=== PATIENT | male | born 1930 | race African-American/Black ===

== ENCOUNTER 2016-10-29 08:40 | Inpatient (IN) | payer BC, OTHER ==
--- NOTE | ~2016-10-29 | DS ---
Discharge Summary [facility] [address] [facility] [place]. [address] NAME: BLANE JIN : 30 STATUS : DIS IN PAT#: [id number] AGE: 86 ADM/REG DATE : 10/29/16 MR#: [id number] REPORT SERV DATE: 11/05/16 DICTATED BY: KIA JARRETT DATE: 11/04/16 REPORT STATUS : Draft TRANSCRIBED BY: MODL DATE: 11/04/16 ADMISSION DATE: 10/29/2016 DISCHARGE DATE: 11/04/2016 CONSULTANTS: 1. Armando Piper M.D., Cardiology. 2. Harini Canchola M.D., Orthopedic Surgery. DISCHARGE DIAGNOSES: 1. Acute systolic congestive heart failure, left ventricular ejection fraction 30%. 2. Acute kidney injury, superimposed on stage 3 chronic kidney disease. 3. Acute exacerbation of chronic obstructive pulmonary disease. 4. Acute on chronic hypercapnic hypoxic respiratory failure. 5. Acute left knee pain consistent with gout and osteoarthritis. 6. Diabetes mellitus type 2 with A1c 7%. 7. Hypertension. 8. History of benign prostatic hypertrophy. 9. History of moderate alcohol use. 10.History of gastritis. HISTORY: The patient and family described at least six months of gradually worsening dyspnea mostly on exertion, but recent orthopnea and PND, and it had gotten to where he was sleeping in a chair. The patient admitted to history of COPD, but denies any known cardiac history. He used to smoke cigars a lot more, but he has cut them down. He drinks about a half a pint of gin every other day. He presented to the emergency room with this shortness of breath and orthopnea and PND. His B-natriuretic peptide was elevated at 1296.2. Chest x-ray revealed COPD changes and cardiomegaly. The ER also did a CT of the brain because of weakness and showed moderate cortical atrophy, moderate chronic deep white matter changes. The patient was referred to our team for inpatient care and the ER gave him one dose of Bumex 1 mg IV. He was admitted with a heart failure order set and was given Bumex IV 1 mg every 8 hours for three doses. Cardiac troponins were minimally elevated at 0.09 and 0.10. He had no chest pain. EKG showed sinus rhythm with PVCs and PACs, and a right bundle-branch block pattern with right ventricular hypertrophy. Echocardiogram on 10/31/2016 showed left atrial size of 4.8 cm, left ventricular ejection fraction 30%. There were regional wall motion abnormalities with mild anterior and septal hypocontractility, severe anterolateral hypocontractility, moderate size of inferior-posterior akinesis. The patient had mildly dilated right ventricle with moderate hypocontractility, moderate mitral regurgitation, mild pulmonary hypertension with a PA pressure of 43. ABG on 10/30/2016 on 28% oxygen, pH 7.37, pCO2 of 66, PaO2 of 58, bicarbonate 37.4. His urine, protein, creatinine ratio was 0.18. The patient was felt to have a combination of left and right heart failure. He has significant COPD with right ventricular hypocontractility and dilation. He has the decreased left ventricular systolic function. With diuresis and continuation of his home Accupril the patient had acute kidney injury. His creatinine on admission to the hospital was 1.52, it gradually chandra went to a peak of 2.75. Postvoid bladder scans 136. Renal Discharge Summary [address] [address] NAME: BLANE JIN : 30 STATUS : DIS IN PAT#: [id number] AGE: 86 ADM/REG DATE : 10/29/16 MR#: [id number] REPORT SERV DATE: 11/05/16 DICTATED BY: KIA JARRETT DATE: 11/04/16 REPORT STATUS : Draft TRANSCRIBED BY: CHARLENE DATE: 11/04/16 ultrasound revealed no evidence of hydronephrosis, no obstruction, but changes consistent with chronic medical renal disease. We held his Accupril and his diuretic. Gave him some IV albumin and a small amount of lactated Ringer's and his creatinine steadily improved, and by discharge it was 1.79. It appears that his baseline creatinine is around 1.5 to 1.7. 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 Hopefully, he will be able to have stable renal function so that he might be on an ISABEL or an ARB, otherwise he would be a candidate to be considered for BiDil. I asked Dr. Armando Piper of Cardiology with [facility] to see the patient because of his heart failure that was new and his regional wall motion abnormalities. Dr. Piper felt the patient because of age and his renal dysfunction and COPD was not a good candidate for cardiac intervention, so no stress test or catheterization was done. The patient and family are aware of this. The patient has had some chronic left knee pain. He had a knee injury in college and he has had worsening recently of the pain and he had a moderate sized effusion and increased discomfort. There was no erythema, no increased warmth, and the x-ray revealed fluid in the suprapatellar area. He asked Ortho, Dr. Canchola, to see the patient and in consultation he felt it was exacerbation of osteoarthritis. He did aspirate the joint and gave an injection of steroids. The patient's sugars did go up a bit after this. The patient had dramatic improvement in the knee pain, Dr. Canchola did not send that fluid for analysis at this time. Previous analysis of fluid from that left knee on 10/19/2013 revealed gout crystals. The patient is already on allopurinol. At discharge, he will not be taking his usual Bumex and Accupril because of his recent acute kidney injury. Dr. Corral can help mechanical expert about the restart of these in the future. He is to follow up with Dr. Corral of Nephrology in two to three weeks. He is to follow up with Cardiology, Dr. Armando Piper in about three to four weeks, and his PCP Dr. Stark in the next week. DISCHARGE MEDICATIONS: 1. Allopurinol 300 mg daily. 2. Aspirin 81 mg daily. 3. Lipitor 40 mg at bedtime. 4. Proscar 5 mg daily. 5. Gabapentin 300 mg at bedtime. 6. Toprol-XL 25 mg daily. 7. Protonix 40 mg daily. 8. Januvia 50 mg daily. 9. Dulera 200/5 mcg two puffs twice a day. 10.DuoNeb inhale q.4 hours p.r.n. shortness of breath with nebulizer at home. 11.He uses some betamethasone ointment on his hands for a chronic rash. 12.He uses some vitamin D periodically. The patient's ambulatory O2 sats have dropped below normal, so he will be set up with home and portable oxygen 2 L nasal cannula. Discharge Summary [address] [place]. [address] NAME: BLANE JIN : 30 STATUS : DIS IN PAT#: [id number] AGE: 86 ADM/REG DATE : 10/29/16 MR#: [id number] REPORT SERV DATE: 11/05/16 DICTATED BY: KIA JARRETT DATE: 11/04/16 REPORT STATUS : Draft TRANSCRIBED BY: CHARLENE DATE: 11/04/16 I spent 43 minutes today with the patient and his in discharge planning. RSG/CHARLENE Kia Jarrett M.D. / [id number] CC: Ryan Haynes M.D. Christopher Poole, M.D. Patrick Foley, M.D. William Warren, M.D. David Collins, M.D. W. Timothy Ballard, M.D.
--- NOTE | ~2016-10-29 | HP ---
History And Physical [place] [id number] [facility] [place]. [address] NAME: BLANE JIN : 30 STATUS : ADM IN PAT#: [id number] AGE: 86 ADM/REG DATE : 10/29/16 MR#: [id number] REPORT SERV DATE: 10/29/16 DICTATED BY: GANESH KIM DATE: 10/29/16 REPORT STATUS : Draft TRANSCRIBED BY: MODL DATE: 10/29/16 DATE OF ADMISSION: 10/29/2016 HISTORY OF PRESENT ILLNESS: The patient is a very pleasant 86-year-old -[place] male, who reports for the last three days, he has had what he describes as shortness of breath. He states it is worse at night when he lies flat. He does describe it as smothering, but states he is more short of breath, more comfortable sitting up. His reports he has been outside trying to "catch his breath" several times in the last few days. It sounds like he has had paroxysmal nocturnal dyspnea. He has not had any new lower extremity edema. He has a chronically swollen left leg, which is not new, and he has some skin issues along his anterior tibia there. He has not had any fevers or chills. He has not had any cough. He denies abdominal pain. He states on Friday, he had a couple of fleeting episodes of chest pain, which was substernal lasting only a couple of minutes. These have since resolved. He continues to smoke and he drinks regularly, drinks about half a pint of liquor every other day. He was previously here back in 2014 and at that time, he had trouble with alcohol withdrawal. He does not have a heart doctor. PAST MEDICAL HISTORY: 1. Ulcerations in the colon. 2. Hypertension. 3. Diabetes mellitus. 4. Gout. 5. Tobacco abuse. 6. Alcohol abuse with previous withdrawal. 7. Chronic kidney disease. SURGICAL HISTORY: He has had back surgery. FAMILY HISTORY: His mother of pancreatic cancer at 85. He had a brother with cirrhosis secondary to alcohol abuse. There is some kidney disease also. SOCIAL HISTORY: He drinks about half a pint of gin every other day. He has smoked for the last 60 years. He is currently smoking cigars, only smokes one or two a day. He is , his is 59 years, she is at bedside, and he has three daughters. HOME MEDICATIONS: Reviewed and attached in the MAR. REVIEW OF SYSTEMS: Full ten-point review of systems obtained. Pertinent positives already mentioned in the HPI. PHYSICAL EXAMINATION: VITAL SIGNS: He is currently 97% on 2 L. BP 134/82, pulse 88, respiratory rate 16, temperature is 98.1. GENERAL: Well-developed -[place]cu[place]orean male HEENT: Normocephalic, atraumatic. Throat is clear. History And Physical [address] [place]. [address] NAME: BLANE JIN : 30 STATUS : ADM IN PAT#: [id number] AGE: 86 ADM/REG DATE : 10/29/16 MR#: [id number] REPORT SERV DATE: 10/29/16 DICTATED BY: GANESH KIM DATE: 10/29/16 REPORT STATUS : Draft TRANSCRIBED BY: CHARLENE DATE: 10/29/16 NECK: Supple. HEART: Regular rate and rhythm. LUNGS: Diminished at the bases. Some discrete crackles at the bases. ABDOMEN: Soft, nontender, nondistended. EXTREMITIES: Warm and dry. Pulses: He has a palpable pulse in the right foot, the left foot I could not palpate. I did do a Doppler. I could not find his dorsalis pedis, but I did find his posterior tibial pulse with the Doppler. He does have some excoriations along his anterior tibia in places where he has had scarring, but no real ulcerations or active wounds. Otherwise, his skin is intact. NEURO: He is alert. He is oriented to person, place, and time. PSYCH: Mood and affect are appropriate. LABORATORY AND X-RAY: CBC shows an H and H of 14 and 43, white count 5, and platelets are 192. Coags are normal. Sodium is 141, potassium 4.2, chloride 100, CO2 35, BUN and creatinine 25 and 1.52, glucose 147, albumin 3.3. LFTs are normal. Troponin 0.09. Brain CT shows moderate cortical volume loss and white matter ischemic change. BNP was 1296. Chest x-ray showed chronic bronchitis and COPD changes. EKG shows an old right bundle, which was present prior. He also has some PVCs and it almost looks as if he is irregular on the EKG, but the PVCs make it difficult. He may also have some PACs. He does have P-waves present and some of these, where I suspect this is not atrial fibrillation. He is getting a repeat EKG now, but there is no acute ST-T wave changes. ASSESSMENT/PLAN: 1. Probable new-onset congestive heart failure. We will place him on Bumex. Continue his angiotensin converting enzyme inhibitor. We will watch his kidney function closely. We will add a beta-nasrin. His blood pressure is suboptimal and we will get an echocardiogram, two more sets of enzymes. We will salt restrict him. I would advise he is to cut back on his alcohol use. We will obtain an echocardiogram. He may need an ischemic evaluation, we will see. 2. Long-standing tobacco abuse with chronic obstructive pulmonary disease changes on x- ray. He has got some baseline shortness of breath, his reports. I think he would benefit for some treatment. For his chronic obstructive pulmonary disease, we will add some Spiriva to his regimen and some DuoNeb p.r.n. He is not actively wheezing today. 3. Chronic kidney disease, stable at baseline. We will need to follow with diuresis to ensure that we do not impair his kidney function further. 4. Diabetes mellitus. We will add sliding scale to his regimen and fingerstick blood sugars before meals and at bedtime. 5. Tobacco abuse. Needs cessation. 6. Alcohol abuse. Previous history of withdrawal. He continues to drink about half pint every other day. I think he is at risk for alcohol withdrawal. We will place him on the alcohol withdrawal protocol and we will assess his CIWA score regularly hopefully over the next 48 hours. He will do well. History And Physical [address] [address] NAME: BLANE JIN : 30 STATUS : ADM IN PAT#: [id number] AGE: 86 ADM/REG DATE : 10/29/16 MR#: [id number] REPORT SERV DATE: 10/29/16 DICTATED BY: GANESH KIM DATE: 10/29/16 REPORT STATUS : Draft TRANSCRIBED BY: CHARLENE DATE: 10/29/16 7. Deep venous thrombosis prophylaxis with subcutaneous heparin. 8. Gout. Continue allopurinol. 9. Disposition, pending above the aforementioned plan and workup. SILVA/MODL Ganesh Kim M.D. / [id number] CC: Ryan Haynes M.D.
--- NOTE | ~2016-10-29 | CN ---
Consultation Report [place] [address] [place]. [address] NAME: BLANE JIN : 30 STATUS : ADM IN PAT#: [id number] AGE: 86 ADM/REG DATE : 10/29/16 MR#: [id number] REPORT SERV DATE: 11/02/16 DICTATED BY: ARMANDO HERMOSILLO DATE: 11/02/16 REPORT STATUS : Draft TRANSCRIBED BY: MODL DATE: 11/02/16 CARDIOVASCULAR CONSULTATION DATE OF CONSULTATION: 11/02/2016 CHIEF COMPLAINT: Congestive heart failure. HISTORY OF PRESENT ILLNESS: Mr. Jin is an 86-year-old man with a history of hypertension, hypercholesterolemia, type 2 diabetes, chronic kidney disease stage III, COPD with ongoing smoking. He is admitted to [facility] with symptoms of dyspnea and was discovered to have new systolic congestive heart failure, EF 35%. There is a longstanding history of alcohol use/abuse as well. The patient's symptoms have improved with aggressive diuresis, although his creatinine has increased to 2.8 from baseline around 1.8. In this setting, his diuretics have been held. His ISABEL inhibitor and ARB have been held, and he is getting some IV fluids gently as rehydration. PAST MEDICAL HISTORY: 1. COPD. 2. Type 2 diabetes. 3. Hypertension. 4. Hypercholesterolemia. 5. Chronic kidney disease stage III. 6. Arthritis. 7. History of gastritis. SOCIAL HISTORY: He drinks a half pint of liquor a day. He smokes cigars regularly. FAMILY HISTORY: There is no family history of early coronary artery disease. REVIEW OF SYSTEMS: A complete review of systems was obtained, which is negative in detail except as mentioned above in the HPI. ALLERGIES: NO KNOWN DRUG ALLERGIES. MEDICATIONS: Include Tylenol, allopurinol, Bumex 1 mg b.i.d. at home, vitamin D, Proscar, Neurontin, Protonix, Accupril 20 mg daily, and Januvia. PHYSICAL EXAMINATION: BLOOD PRESSURE: 119/73. PULSE: Heart rate of 70. RESPIRATIONS: 14. GENERAL: Comfortable in no acute distress. Consultation Report [place] [address] [place]. [address] NAME: BLANE JIN : 30 STATUS : ADM IN PAT#: [id number] AGE: 86 ADM/REG DATE : 10/29/16 MR#: [id number] REPORT SERV DATE: 11/02/16 DICTATED BY: ARMANDO HERMOSILLO DATE: 11/02/16 REPORT STATUS : Draft TRANSCRIBED BY: CHARLENE DATE: 11/02/16 HEENT: Anicteric. No xanthelasma. Lips without cyanosis. NECK: No JVD. Carotids 2+ and symmetric. No carotid bruits. LUNGS: CTA bilaterally. No wheezes or rhonchi. No accessory muscle use. COR: RRR. Normally placed PMI. Normal S1 and S2. No murmurs, rubs or gallops. ABD: Soft, nontender, nondistended. Normal bowel sounds. No abdominal bruits. EXT: No clubbing, cyanosis or edema 2+ and symmetric distal pulses. SKIN: Warm. Dry. No venous stasis changes. MS: No kyphosis. NEURO/PSYCH: Oriented x3. No anxiety or depression. LABORATORY STUDIES: Potassium of 5.1, creatinine of 2.75. Hematocrit of 41.9. Troponin of 0.1, 0.1, and 0.1. BNP of 1300. EKG: A 12-lead EKG shows sinus rhythm with frequent premature ventricular contractions. Right bundle branch block pattern noted. Left ventricular hypertrophy noted. IMPRESSION: Mr. Jin is an 86-year-old man with multiple medical problems listed above. He now has a new diagnosis of acute systolic congestive heart failure with an ejection fraction 35%. For now, I suggest medical management. I discussed the options for an invasive management approach including catheterization and even possible surgery with the patient and his . They are not interested in this approach. I agree in that he is a poor candidate for coronary artery bypass graft given his significantly elevated risk, and I do not think that he has a problem that a single stent or two can fix. Therefore, I do not suggest a stress test. We will plan for medical management and hopefully instead reinstitute ISABEL inhibitor and diuretics once his creatinine normalizes. EBER/CHARLENE Armando Hermosillo M.D. / [id number] CC: Ryan Haynes [place], M.D.
--- NOTE | ~2016-10-29 | HP ---
History And Physical [address] [place]. [address] NAME: BLANE JIN : 30 STATUS : ADM IN PAT#: [id number] AGE: 86 ADM/REG DATE : 10/29/16 MR#: [id number] REPORT SERV DATE: 10/31/16 DICTATED BY: MARNIE CHRISTIANSON DATE: 10/31/16 REPORT STATUS : Draft TRANSCRIBED BY: MODL DATE: 10/31/16 DATE OF ADMISSION: 10/29/2016 CHIEF COMPLAINT: Left knee pain. HISTORY: An 86-year-old male, who " since the college". He had injury back then. He has had intermittent problem since with aspirations and injection periodically. He has some medications and also has a history of gout, currently admitted with CHF. He has had more pain with walking . ALLERGIES: NONE. MEDICATIONS: See chart. PAST MEDICAL HISTORY: Hypertension, hypercholesterolemia, COPD, renal insufficiency, diabetes. PAST SURGICAL HISTORY: Back surgery in 1996. SOCIAL HISTORY: He quit tobacco after 60 years of use. Has about 1 alcoholic beverage twice a week. No illicit drug use. FAMILY HISTORY: No anesthetic complications. REVIEW OF SYSTEMS: As above. PHYSICAL EXAMINATION: GENERAL: He is alert and oriented x3, in no apparent distress. HEENT: Atraumatic, normocephalic. NECK: Supple. CHEST: Symmetric and nontender. LUNGS: Per Medicine evaluation. CV: Regular. ABDOMEN: Soft. No mass. EXTREMITIES: Decreased range of motion. Pain effusion. No erythema or warmth of left knee. Skin is intact. Compartment supple. Thready pulses. NEURO: Sensorimotor without deficit, both the upper extremities and right lower extremity without acute trauma. X-RAY: Pending. ASSESSMENT: Left knee DJD, acute effusion exacerbation, long history of gout. PLAN: We will request aspiration injection. We will assemble the equipments and plan to proceed with this. History And Physical [address] [place]. [address] NAME: BLANE JIN : 30 STATUS : ADM IN PAT#: [id number] AGE: 86 ADM/REG DATE : 10/29/16 MR#: [id number] REPORT SERV DATE: 10/31/16 DICTATED BY: MRANIE CHRISTIANSON DATE: 10/31/16 REPORT STATUS : Draft TRANSCRIBED BY: CHARLENE DATE: 10/31/16 NIDHI/CHARLENE Harini Christianson M.D. / [id number]
--- NOTE | ~2016-10-29 | HP ---
History And Physical [place] [address] [facility] [address] [place]. [address] NAME: BLANE JIN : 30 STATUS : ADM IN PAT#: [id number] AGE: 86 ADM/REG DATE : 10/29/16 MR#: [id number] REPORT SERV DATE: 10/29/16 DICTATED BY: GANESH KEE DATE: 10/29/16 REPORT STATUS : Draft TRANSCRIBED BY: MODFco DATE: 10/29/16 DATE OF ADMISSION: 10/29/2016 ADDENDUM 1. Probable PAD in the left lower extremity. He does have a diminished pulse but I cannot find a signal at his posterior tibial location. I suspect he has blood flow to his foot. I questioned him about claudication symptoms which he does not have. He does not currently have an open wound. I think without claudications or wound, there is no reason to further workup this left lower extremity given his advanced age and comorbidities. SILVA/CHARLENE Ganesh Kee M.D. / [id number] CC: Ryan Haynes M.D.
[~2016-10-29 08:40] MED LIST: ACCU10 PO; DIABETA5 PO; DIURETIC PO; GLUCOPHAGE1000 MG PO; NORV10 PO; ULTRAM50 PO; VOLT75 PO
[2016-10-29 10:11] LABS: BASOPHILS 0 %; EOSINOPHILS 0 %; HEMATOCRIT 43.4 % (40.0-51.0); HEMOGLOBIN 14.2 g/dL (13.6-17.8); IMMATURE GRANULOCYTES 0.2 %; IMMATURE GRANULOCYTES ABSOLUTE 0.01 10/3/uL (0.0-0.11); LYMPHOCYTES 34.5 %; LYMPHOCYTES ABSOLUTE 1.86 10/3/uL (0.67-4.30); MANUAL DIFF NO %; MEAN CORPUS HGB CONC 32.7 g/dL (32.0-36.0); MEAN CORPUSCULAR VOLUME 103.8 fL (80-100); MEAN PLATELET VOLUME 10.1 fL (9.2-13.0); MONOCYTES 13.4 %; MONOCYTES ABSOLUTE 0.72 10/3/uL (0.21-1.20); NEUTROPHILS 51.9 %; PLATELET COUNT 192 10/3/uL (150-400); RBC DISTRIBUTION WIDTH 14.2 % (12.0-16.0); RED CELL COUNT 4.18 10/6/uL (4.7-6.1); WHITE BLOOD CELLS 5.4 10/3/uL (4.5-10.5)
[2016-10-29 10:18] LABS: PARTIAL THROMBO TIME 30.3 SEC (22.5-37.2)
[2016-10-29 10:22] LABS: INTERNATIONAL NORMAL RATI 1.1 UNITS (-); PROTIME (NOT ORD) 14.3 SEC (12.0-14.5)
[2016-10-29 10:28] LABS: A/G RATIO 0.9 (0.7-1.9); ALBUMIN 3.3 G/DL (3.5-5.0); ALKALINE PHOSPHATASE 75 U/L (45-117); BUN (BLOOD UREA NITROGEN) 25 MG/DL (6-23); CALCIUM, SERUM 8.7 MG/DL (8.5-10.4); CHLORIDE, SERUM 100 MMOL/L (96-112); CO2 (CARBON DIOXIDE) 35 MMOL/L (24-34); CREATININE 1.52 MG/DL (0.70-1.30); GFR AFRICAN AMERICAN 47 ML/MIN (>=60); GFR NON AFRICAN AMERICAN 41 ML/MIN (>=60); GLOBULIN 3.7 G/DL (2.5-4.1); GLUCOSE, SERUM 147 MG/DL (60-99); POTASSIUM, SERUM 4.2 MMOL/L (3.5-5.3); SGOT(AST) 24 U/L (5-40); SGPT(ALT) 16 U/L (5-65); SODIUM, SERUM 141 MMOL/L (135-148); TOTAL BILIRUBIN 0.5 MG/DL (0-1.2)
[2016-10-29 10:29] LABS: TROPONIN I 0.09 NG/ML (<0.05)
[2016-10-29] MEDS ORDERED: VALISONE OINT 015 GM TOP (10:44)
[2016-10-29] MEDS ORDERED: JANUVIA50 PO (10:45)
[2016-10-29] MEDS ORDERED: ACCU20 PO (10:45)
[2016-10-29] MEDS ORDERED: VITAMIN D31000 UNIT PO (10:45)
[2016-10-29] MEDS ORDERED: PROSCAR5 PO (10:46)
[2016-10-29] MEDS ORDERED: PROTONIX PO (10:46)
[2016-10-29] MEDS ORDERED: Z300 PO (10:47)
[2016-10-29] MEDS ORDERED: BUM1 PO (10:47)
[2016-10-29] MEDS ORDERED: NEUR300 PO (10:47)
[2016-10-29] MEDS ORDERED: T PO (10:48)
[2016-10-29 11:38] LABS: ASCORBIC ACID (UR NOT ORDER) NEG (NEG); BILIRUBIN, URINE NEGATIVE (NEG); ER URINALYSIS TAT 0 Hrs 08 Mins; KETONE, URINE NEGATIVE (NEG); LEUKOCYTE ESTERASE(NOT OR NEG (NEG); NITRITE (URINE) NEG (NEG); WBC (NOT ORDERED) (RFLEX) 3 (0-5)
[2016-10-29 16:45] LABS: ULTRASENSITIVE TSH 1.02 MCIU/ML (0.358-3.740)
[2016-10-29 16:46] LABS: TROPONIN I 0.1 NG/ML (<0.05)
[2016-10-30 05:41] LABS: BUN (BLOOD UREA NITROGEN) 25 MG/DL (6-23); CALCIUM, SERUM 8.6 MG/DL (8.5-10.4); CHLORIDE, SERUM 98 MMOL/L (96-112); CO2 (CARBON DIOXIDE) 36 MMOL/L (24-34); CREATININE 1.44 MG/DL (0.70-1.30); GFR AFRICAN AMERICAN 51 ML/MIN (>=60); GFR NON AFRICAN AMERICAN 44 ML/MIN (>=60); GLUCOSE, SERUM 135 MG/DL (60-99); POTASSIUM, SERUM 3.9 MMOL/L (3.5-5.3); SODIUM, SERUM 142 MMOL/L (135-148)
[2016-10-30 17:25] LABS: ALLENS TEST Pos; BE (BASE EXCESS) 9.4 MEQ/L (0 +/- 2.5); CARBOXYHEMOGLOBIN 2.3 % (0-3); HCO3 (ACTUAL BICARBONATE) 37.4 MEQ/L (23-27); HEMOBLOGIN CONTENT 14.7 G/DL (14-18); INSTRUMENT SERIAL # 8083; METHEMOGLOBIN 0.1 % (0-3); O2 CONTENT 18.1 VOL% (18-24); PCO2 (CO2 TENSION) 66 MMHG (35-45); PO2 (O2 TENSION) 58 MMHG (79-93); SAMPLE Arterial; pH 7.37 (7.37-7.43)
[2016-10-31 07:13] LABS: BUN (BLOOD UREA NITROGEN) 32 MG/DL (6-23); CALCIUM, SERUM 8.6 MG/DL (8.5-10.4); CHLORIDE, SERUM 95 MMOL/L (96-112); CO2 (CARBON DIOXIDE) 37 MMOL/L (24-34); CREATININE 1.81 MG/DL (0.70-1.30); GFR AFRICAN AMERICAN 38 ML/MIN (>=60); GFR NON AFRICAN AMERICAN 33 ML/MIN (>=60); GLUCOSE, SERUM 124 MG/DL (60-99); POTASSIUM, SERUM 3.9 MMOL/L (3.5-5.3); SODIUM, SERUM 140 MMOL/L (135-148)
[2016-10-31 09:54] LABS: BE (BASE EXCESS) 7.4 MEQ/L (0 +/- 2.5); CARBOXYHEMOGLOBIN 2.2 % (0-3); DEVICE NC; HCO3 (ACTUAL BICARBONATE) 34.4 MEQ/L (23-27); HEMOBLOGIN CONTENT 14.1 G/DL (14-18); INSTRUMENT SERIAL # 8083; METHEMOGLOBIN 0.2 % (0-3); O2 CONTENT 17.8 VOL% (18-24); OPERATOR ID 32214; PCO2 (CO2 TENSION) 59 MMHG (35-45); PO2 (O2 TENSION) 62 MMHG (79-93); SAMPLE Arterial; pH 7.39 (7.37-7.43)
[2016-10-31 09:55] LABS: ALLENS TEST Pos
[2016-11-01 07:07] LABS: BUN (BLOOD UREA NITROGEN) 40 MG/DL (6-23); CALCIUM, SERUM 8.6 MG/DL (8.5-10.4); CHLORIDE, SERUM 95 MMOL/L (96-112); CO2 (CARBON DIOXIDE) 34 MMOL/L (24-34); CREATININE 2.16 MG/DL (0.70-1.30); GFR AFRICAN AMERICAN 31 ML/MIN (>=60); GFR NON AFRICAN AMERICAN 27 ML/MIN (>=60); GLUCOSE, SERUM 118 MG/DL (60-99); POTASSIUM, SERUM 4.4 MMOL/L (3.5-5.3); SODIUM, SERUM 136 MMOL/L (135-148)
[2016-11-02 07:48] LABS: BASOPHILS 0 %; EOSINOPHILS 0 %; HEMATOCRIT 41.9 % (40.0-51.0); HEMOGLOBIN 13.9 g/dL (13.6-17.8); LYMPHOCYTES 20.7 %; LYMPHOCYTES ABSOLUTE 0.65 10/3/uL (0.67-4.30); MEAN CORPUS HGB CONC 33.2 g/dL (32.0-36.0); MEAN CORPUSCULAR HEMOGLOB 34.6 pg (26.0-34.0); MEAN CORPUSCULAR VOLUME 104.2 fL (80-100); MEAN PLATELET VOLUME 10.1 fL (9.2-13.0); MONOCYTES 3.5 %; MONOCYTES ABSOLUTE 0.11 10/3/uL (0.21-1.20); NEUTROPHILS 75.8 %; NEUTROPHILS ABSOLUTE 2.38 10/3/uL (2.02-8.40); PLATELET COUNT 184 10/3/uL (150-400); RBC DISTRIBUTION WIDTH 13.6 % (12.0-16.0); RED CELL COUNT 4.02 10/6/uL (4.7-6.1)
[2016-11-02 07:51] LABS: MANUAL DIFF NO %; WHITE BLOOD CELLS 3.1 10/3/uL (4.5-10.5)
[2016-11-02 08:01] LABS: ALBUMIN 3.5 G/DL (3.5-5.0); CALCIUM, SERUM 8.9 MG/DL (8.5-10.4); CHLORIDE, SERUM 92 MMOL/L (96-112); CO2 (CARBON DIOXIDE) 32 MMOL/L (24-34); PHOSPHORUS, SERUM 3.8 MG/DL (2.5-4.5); POTASSIUM, SERUM 5.1 MMOL/L (3.5-5.3); SODIUM, SERUM 132 MMOL/L (135-148)
[2016-11-02 08:02] LABS: BUN (BLOOD UREA NITROGEN) 61 MG/DL (6-23); CREATININE 2.75 MG/DL (0.70-1.30); GFR AFRICAN AMERICAN 23 ML/MIN (>=60); GFR NON AFRICAN AMERICAN 20 ML/MIN (>=60); GLUCOSE, SERUM 293 MG/DL (60-99)
[2016-11-03 07:03] LABS: BUN (BLOOD UREA NITROGEN) 60 MG/DL (6-23); CALCIUM, SERUM 9.6 MG/DL (8.5-10.4); CHLORIDE, SERUM 95 MMOL/L (96-112); CO2 (CARBON DIOXIDE) 32 MMOL/L (24-34); POTASSIUM, SERUM 4.7 MMOL/L (3.5-5.3); SODIUM, SERUM 136 MMOL/L (135-148)
[2016-11-03 07:05] LABS: CREATININE 1.96 MG/DL (0.70-1.30); GFR AFRICAN AMERICAN 35 ML/MIN (>=60); GFR NON AFRICAN AMERICAN 30 ML/MIN (>=60); GLUCOSE, SERUM 149 MG/DL (60-99)
[2016-11-04 05:52] LABS: BASOPHILS 0.2 %; BASOPHILS ABSOLUTE 0.01 10/3/uL (0.0-0.16); EOSINOPHILS 0 %; HEMATOCRIT 38.8 % (40.0-51.0); HEMOGLOBIN 12.4 g/dL (13.6-17.8); LYMPHOCYTES 30.8 %; LYMPHOCYTES ABSOLUTE 1.65 10/3/uL (0.67-4.30); MEAN CORPUSCULAR HEMOGLOB 34.1 pg (26.0-34.0); MEAN CORPUSCULAR VOLUME 106.6 fL (80-100); MEAN PLATELET VOLUME 10.3 fL (9.2-13.0); MONOCYTES 18.1 %; MONOCYTES ABSOLUTE 0.97 10/3/uL (0.21-1.20); NEUTROPHILS 50.9 %; NEUTROPHILS ABSOLUTE 2.72 10/3/uL (2.02-8.40); PLATELET COUNT 159 10/3/uL (150-400); RBC DISTRIBUTION WIDTH 13.9 % (12.0-16.0); RED CELL COUNT 3.64 10/6/uL (4.7-6.1)
[2016-11-04 06:06] LABS: MANUAL DIFF NO %; WHITE BLOOD CELLS 5.4 10/3/uL (4.5-10.5)
[2016-11-04 06:07] LABS: BUN (BLOOD UREA NITROGEN) 59 MG/DL (6-23); CALCIUM, SERUM 9.4 MG/DL (8.5-10.4); CHLORIDE, SERUM 97 MMOL/L (96-112); CO2 (CARBON DIOXIDE) 35 MMOL/L (24-34); CREATININE 1.79 MG/DL (0.70-1.30); GFR AFRICAN AMERICAN 39 ML/MIN (>=60); GFR NON AFRICAN AMERICAN 34 ML/MIN (>=60); GLUCOSE, SERUM 136 MG/DL (60-99); POTASSIUM, SERUM 4.8 MMOL/L (3.5-5.3); SODIUM, SERUM 139 MMOL/L (135-148)
[2016-11-04] MEDS ORDERED: HALF81 PO (10:45)
[2016-11-04] MEDS ORDERED: LIPITOR40 PO (10:46)
[2016-11-04] MEDS ORDERED: DUONEB INH (10:47)
[2016-11-04] MEDS ORDERED: TOPXL25 PO (10:47)
[2016-11-04] MEDS ORDERED: DULERA 200 MCG/13 GM INH (10:48)
[2017-01-08] MEDS ORDERED: BUM1 PO (14:48)
== END 2016-11-04 15:31 | disposition home or self-care (01) | DRG 291 ==
LOC: ER 08:40 → 1SO 11:37
PROVIDERS: Emergency Medicine; Hospitalist; Internal Medicine
DX: I13.0 Hypertensive heart and chronic kidney disease with heart failure and stage 1 through stage 4 chronic kidney disease, or unspecified chronic kidney disease (principal); J96.21 Acute and chronic respiratory failure with hypoxia; N17.9 Acute kidney failure, unspecified; I50.23 Acute on chronic systolic (congestive) heart failure; J96.22 Acute and chronic respiratory failure with hypercapnia; J44.1 Chronic obstructive pulmonary disease with (acute) exacerbation; N18.3 Chronic kidney disease, stage 3 (moderate); I73.9 Peripheral vascular disease, unspecified; E11.22 Type 2 diabetes mellitus with diabetic chronic kidney disease; E11.65 Type 2 diabetes mellitus with hyperglycemia; M17.12 Unilateral primary osteoarthritis, left knee; I45.10 Unspecified right bundle-branch block; I49.3 Ventricular premature depolarization; M10.9 Gout, unspecified; I49.1 Atrial premature depolarization; N40.0 Benign prostatic hyperplasia without lower urinary tract symptoms; E78.5 Hyperlipidemia, unspecified; F10.10 Alcohol abuse, uncomplicated; F17.210 Nicotine dependence, cigarettes, uncomplicated; Z79.82 Long term (current) use of aspirin; Z79.899 Other long term (current) drug therapy
CPT/HCPCS: 36600; 70450; 71010; 73560-LT; 76775; 80048; 80053; 80069; 81001; 82570; 82805; 82962; 83735; 83880; 84156; 84443; 84484; 85025; 85610; 85730; 93005; 93306; 94640; 99285; A9270-GY; J1030; J3411; P9047

== ENCOUNTER 2017-01-14 06:16 | Observation (INO) | payer BC, OTHER ==
[2017-01-08 12:55] LABS: BASOPHILS 0 %; EOSINOPHILS 0 %; HEMATOCRIT 41.9 % (40.0-51.0); HEMOGLOBIN 13.8 g/dL (13.6-17.8); IMMATURE GRANULOCYTES 0.2 %; IMMATURE GRANULOCYTES ABSOLUTE 0.01 10/3/uL (0.0-0.11); LYMPHOCYTES 50.2 %; LYMPHOCYTES ABSOLUTE 2.54 10/3/uL (0.67-4.30); MEAN CORPUS HGB CONC 32.9 g/dL (32.0-36.0); MEAN CORPUSCULAR HEMOGLOB 32.6 pg (26.0-34.0); MEAN CORPUSCULAR VOLUME 99.1 fL (80-100); MEAN PLATELET VOLUME 9.6 fL (9.2-13.0); MONOCYTES 12.1 %; MONOCYTES ABSOLUTE 0.61 10/3/uL (0.21-1.20); NEUTROPHILS 37.5 %; PLATELET COUNT 182 10/3/uL (150-400); RBC DISTRIBUTION WIDTH 15.3 % (12.0-16.0); RED CELL COUNT 4.23 10/6/uL (4.7-6.1); WHITE BLOOD CELLS 5.1 10/3/uL (4.5-10.5)
[2017-01-08 12:56] LABS: MANUAL DIFF NO %
[2017-01-08 13:01] LABS: INTERNATIONAL NORMAL RATI 1.1 UNITS (-); PARTIAL THROMBO TIME 29.7 SEC (22.5-37.2); PROTIME (NOT ORD) 14.2 SEC (12.0-14.5)
[2017-01-08 13:13] LABS: BUN (BLOOD UREA NITROGEN) 32 MG/DL (6-23); CALCIUM, SERUM 9.3 MG/DL (8.5-10.4); CHLORIDE, SERUM 103 MMOL/L (96-112); CO2 (CARBON DIOXIDE) 35 MMOL/L (24-34); CREATININE 2.04 MG/DL (0.70-1.30); GFR AFRICAN AMERICAN 33 ML/MIN (>=60); GFR NON AFRICAN AMERICAN 29 ML/MIN (>=60); GLUCOSE, SERUM 146 MG/DL (60-99); SODIUM, SERUM 143 MMOL/L (135-148)
[2017-01-08 13:15] LABS: ASCORBIC ACID (UR NOT ORDER) NEG (NEG); BILIRUBIN, URINE NEGATIVE (NEG); KETONE, URINE NEGATIVE (NEG); LEUKOCYTE ESTERASE(NOT OR NEG (NEG); WBC (NOT ORDERED) (RFLEX) 6 (0-5)
--- NOTE | ~2017-01-14 | OP ---
Record Of Operation [facility] [address] [place]. [address] NAME: BLANE JIN : 30 STATUS : ADM IN PAT#: [id number] AGE: 86 ADM/REG DATE : 01/14/17 MR#: [id number] REPORT SERV DATE: 01/14/17 DICTATED BY: FER LUGO DATE: 01/14/17 REPORT STATUS : Draft TRANSCRIBED BY: MODL DATE: 01/14/17 DATE OF PROCEDURE: 01/14/2017 PREOPERATIVE DIAGNOSIS: Symptomatic benign prostatic hypertrophy with obstruction. POSTOPERATIVE DIAGNOSIS: Symptomatic benign prostatic hypertrophy with obstruction. PROCEDURE: Cystoscopy, holmium GreenLight photo laser vaporization of the prostate. SURGEON: Fer Lugo M.D. ANESTHESIA: General endotracheal. BLOOD LOSS: Estimated 25 mL. FLUID REPLACEMENT: 600 mL crystalloid. DRAINS: A 24-Japanese three-way Lugo catheter with 30 mL sterile water inflated in the catheter balloon. INDICATION: 86-year-old male with symptomatic BPH. He is in near urinary retention. TECHNIQUE: The patient was identified, brought to the operating room, administered general anesthetic agent by the Anesthesia Service and intubated. He was positioned into the dorsal lithotomy position. The entire lower abdomen, penis, groin, scrotum, and perineum were prepped and draped in usual sterile fashion. A 22-Japanese cystoscopic sheath with 30-degree lens was used for cystourethroscopy. The distal urethra was tight on the 22-Japanese scope and there was a more defined stricture at the penoscrotal junction. Proximal to that, it was dilated and the prostatic urethra was hypertrophied with lateral lobe hypertrophy and a large to median ramp. The bladder was entered and surveyed. There was moderate trabeculation. There were no urothelial tumors. No stones. The bladder was examined with both 30- and 70-degree lens. The cystoscope was removed. I then sounded the urethra to 20-Japanese with Dara sounds and inserted a 24-Japanese laser bridge with a visual obturator. The visual obturator removed and the laser bridge was inserted. I used a holmium XPS GreenLight laser fiber started at 100 robles power and cut a groove of the prostate from the bladder neck back to the verumontanum. I did that at the 5 o'clock position and the 7 o'clock position. I then increased the power to 170 robles power and ablated the lateral lobes and the floor of the prostate. I decreased the power down to 100 and ablated anteriorly. I irrigated the bladder free of all debris with the Arti evacuators. After I did that, I had some bleeding. I tried to find it with the laser, I was unable to. I removed the laser and sounded the urethra again and then placed a 24- Japanese continuous flow resecting sheath and obturator. The [employer] resectoscope and a cutting loop and a 30-degree lens were inserted. I went in and really found no arterial bleeders. I cauterized a few areas. I irrigated clear. I removed the resecting sheath. I placed a 24-Japanese three-way Lugo catheter. 30 mL sterile water inflated in the catheter Record Of [address] [place]. [address] NAME: BLANE JIN : 30 STATUS : ADM IN PAT#: [id number] AGE: 86 ADM/REG DATE : 01/14/17 MR#: [id number] REPORT SERV DATE: 01/14/17 DICTATED BY: FER LUGO DATE: 01/14/17 REPORT STATUS : Draft TRANSCRIBED BY: MODL DATE: 01/14/17 balloon. I manually irrigated it clear. It was left to normal saline continuous bladder irrigation. The patient was awakened and taken to the recovery unit in a stable and satisfactory condition. PF/MODL Fer Lugo M.D. / [id number] CC: Ryan Strange M.D.
[~2017-01-14 06:16] MED LIST changes: +ACCU20 PO; +BUM1 PO; +DULERA 200 MCG/13 GM INH; +DUONEB INH; +HALF81 PO; +JANUVIA50 PO; +LIPITOR40 PO; +NEUR300 PO; +PROSCAR5 PO; +PROTONIX PO; +T PO; +TOPXL25 PO; +VALISONE OINT 015 GM TOP; +VITAMIN D31000 UNIT PO; +Z300 PO
[2017-01-15 06:49] LABS: HEMATOCRIT 42.5 % (40.0-51.0); HEMOGLOBIN 13.7 g/dL (13.6-17.8)
[2017-01-15 07:05] LABS: BUN (BLOOD UREA NITROGEN) 23 MG/DL (6-23); CALCIUM, SERUM 9.1 MG/DL (8.5-10.4); CHLORIDE, SERUM 101 MMOL/L (96-112); CO2 (CARBON DIOXIDE) 35 MMOL/L (24-34); CREATININE 1.61 MG/DL (0.70-1.30); GFR AFRICAN AMERICAN 44 ML/MIN (>=60); GFR NON AFRICAN AMERICAN 38 ML/MIN (>=60); GLUCOSE, SERUM 149 MG/DL (60-99); POTASSIUM, SERUM 4.5 MMOL/L (3.5-5.3); SODIUM, SERUM 139 MMOL/L (135-148)
== END 2017-01-15 15:30 | disposition home or self-care (01) ==
LOC: SDC 06:16 → 4SO 12:35
PROVIDERS: Emergency Medicine; Urology
PROC: 0W3R8ZZ Control Bleeding in Genitourinary Tract, Via Natural or Artificial Opening Endoscopic (ICD-10-PCS; 2017-01-14)
PROC: 0VT08ZZ Resection of Prostate, Via Natural or Artificial Opening Endoscopic (ICD-10-PCS; principal; 2017-01-14 07:45)
DX: N40.1 Benign prostatic hyperplasia with lower urinary tract symptoms (principal); N13.8 Other obstructive and reflux uropathy; I25.10 Atherosclerotic heart disease of native coronary artery without angina pectoris; G47.33 Obstructive sleep apnea (adult) (pediatric); J44.9 Chronic obstructive pulmonary disease, unspecified; F17.210 Nicotine dependence, cigarettes, uncomplicated; I50.9 Heart failure, unspecified; E11.22 Type 2 diabetes mellitus with diabetic chronic kidney disease; N18.9 Chronic kidney disease, unspecified; Z98.890 Other specified postprocedural states
CPT/HCPCS: 80048; 81001; 82962; 85014; 85018; 85025; 85610; 85730; 93005; A9270-GY; G0378; J2405; J2710; J3010